=== PATIENT | male | born 1940 | race Caucasian/White ===

== ENCOUNTER 2017-08-07 01:31 | Inpatient (IN) | payer OTHER ==
--- NOTE | 2017-08-07 01:56 | HP ---
CIWA Score - CIWA Score Nausea/Vomitin Muscle Tremors: 2 Anxiety: 3 Agitation: 3 Paroxysmal Sweats: 1-Minimal Palms Moist Orientation: 1-Uncertain about Date Tacttile Disturbances: 1-Very Mild Itch/Numbness Auditory Disturbances: 0-None Visual Disturbances: 2-Mild Sensitivity Headache: 1-Very Mild CIWA-Ar Total Score: 16 Admission ROS BHS - HPI Chief Complaint: WITHDRAWAL SYMPTOMS Allergies/Adverse Reactions: Allergies Allergy/AdvReac Type Severity Reaction Status Date / Time No Known Allergies Allergy Verified 12/12/12 16:08 History of Present Illness: 77 Y.O. MAN WITH AN EXTENSIVE HISTORY OF ALCOHOL DEPENDENCE IS HERE SEEKING DETOX. HE WAS LAST HERE IN 2012 FOR DETOX. REPORTS BEING SOBER FOR 30 YEARS BUT STATES HE RELAPSED IN 2009. Exam Limitations: Intoxication - Ebola screening Have you traveled outside of the country in the last 21 days: No - Review of Systems Constitutional: Changes in sleep, Weakness EENT: reports: Blurred Vision Respiratory: reports: Cough, SOB with Exertion Cardiac: reports: No Symptoms Reported GI: reports: Abdominal Distended, Nausea : reports: No Symptoms Reported Musculoskeletal: reports: No Symptoms Reported Integumentary: reports: No Symptoms Reported Neuro: reports: Tremors Endocrine: reports: No Symptoms Reported Hematology: reports: Blood Clots (ON COUMADIN) Psychiatric: reports: Mood/Affect Appropiate, Agitated, Anxious, Depressed Other Systems: Reviewed and Negative Patient History - Patient Medical History Hx Anemia: No Hx Asthma: No Hx Chronic Obstructive Pulmonary Disease (COPD): No Hx Cancer: No Hx Cardiac Disorders: No Hx Congestive Heart Failure: No Hx Hypertension: No Hx Hypercholesterolemia: Yes Hx Pacemaker: No HX Cerebrovascular Accident: No Hx Seizures: No Hx Dementia: No Hx Diabetes: No Hx Gastrointestinal Disorders: No Hx Liver Disease: No Hx Genitourinary Disorders: No Hx Sexually Transmitted Disorders: No Hx Renal Disease (ESRD): No Hx Thyroid Disease: No Hx Human Immunodeficiency Virus (HIV): No Hx Hepatitis C: No Hx Depression: Yes (not suicidal, does not see psych, on remeron) Hx Suicide Attempt: No Hx Bipolar Disorder: No Hx Schizophrenia: No - Patient Surgical History Past Surgical History: Yes Hx Neurologic Surgery: No Hx Cataract Extraction: No Hx Cardiac Surgery: No Hx Lung Surgery: No Hx Breast Surgery: No Hx Breast Biopsy: No Hx Appendectomy: No Hx Cholecystectomy: No Hx Genitourinary Surgery: Yes (turp) Hx Orthopedic Surgery: Yes (left hip replacement 08/2015) Other Surgical History: IVC filter Anesthesia Reaction: No - PPD History Previous Implant?: Yes Documented Results: Negative w/proof Implanted On Prior [facility] Admission?: Yes Date: 12/14/12 Results: 0 PPD to be Administered?: Yes - Reproductive History Patient is a Female of Child Bearing Age (11 -55 yrs old): No - Smoking Cessation Smoking history: Former smoker Have you smoked in the past 12 months: No Aproximately how many cigarettes per day: 0 Cigars Per Day: 0 Hx Chewing Tobacco Use: No Initiated information on smoking cessation: No - Substance & Tx. History Hx Alcohol Use: Yes Hx Substance Use: Yes (ON SUBOXONE ) Substance Use Type: Alcohol, Opiates Hx Substance Use Treatment: Yes (DOES NOT RECALL LAST DETOX OR REHAB ADMISSION) - Substances Abused Alcohol Route: Oral Frequency: Daily Amount used: 6 PACK OF 24OZ OF BEER + 1 PINT OF LIQUOR Age of first use: 13 Date of Last Use: 08/07/17 Family Disease History - Family Disease History Family Disease History: Heart Disease: Father (), Other: Father, Mother (/[id number]) Admission Physical Exam BHS - Vital Signs Vital Signs: Last Vital Signs Temp Pulse Resp BP Pulse Ox 96.1 F L 99 H 16 138/82 08/07/17 02:38 08/07/17 02:38 08/07/17 02:38 08/07/17 02:38 - Physical General Appearance: Yes: Disheveled, Alcohol on Breath, Intoxicated, Tremorous, Irritable, Sweating, Anxious HEENTM: Yes: Hearing grossly Normal, Normocephalic, Normal Voice Respiratory: Yes: Chest Non-Tender, Lungs Clear, Normal Breath Sounds, No Respiratory Distress, No Accessory Muscle Use Neck: Yes: No masses,lesions,Nodules, Trachea in good position Breast: Yes: Breast Exam Deferred Cardiology: Yes: Regular Rhythm, Regular Rate Abdominal: Yes: Normal Bowel Sounds, Non Tender, Flat Genitourinary: Yes: Other (NO COMPLAINTS REPORTED) Back: Yes: Normal Inspection Musculoskeletal: Yes: full range of Motion, Gait Steady, Pelvis Stable Extremities: Yes: Tremors, Pedal Edema, Other (B/L LE EDEMA) Neurological: Yes: Alert, Motor Strength 5/5, Normal Mood/Affect, Normal Response, Depressed Affect Integumentary: Yes: Pitting Edema Lymphatic: Yes: Within Normal Limits - Diagnostic (1) Alcohol dependence with uncomplicated withdrawal Current Visit: Yes Status: Chronic (2) Edema of both legs Current Visit: Yes Status: Chronic Comment: unclear if due to PVD or other cause - consent for records, recommend zip up compresson stockings and keep legs elevated when at rest (3) Hyperlipidemia Current Visit: Yes Status: Chronic Qualifiers: Hyperlipidemia type: pure hypercholesterolemia Qualified Code(s): E78.00 - Pure hypercholesterolemia, unspecified; E78.0 - Pure hypercholesterolemia (4) h/o dvt on coumadin Current Visit: Yes Status: Chronic Comment: on coumadin - sees md for same ivc filter coumadin 2 mg alternates with 3 mg every other day (5) Opioid dependence on agonist therapy Current Visit: Yes Status: Chronic Cleared for Admission BHS - Detox or Rehab S Level of Care: Medically Managed Detox Regimen/Protocol: Librium BHS Breath Alcohol Content Breath Alcohol Content: 0.220 Vital Signs - Vital Signs Vital Signs Refused: No Temperature: 96.1 F Temperature Source: Oral Pulse Rate: 99 Respiratory Rate: 16 Blood Pressure: 138/82 BP Location: Left Arm Blood Pressure Position: Sitting - Height Height: 6 ft - Weight Weight: 235 lb Weight Measurement Method: Standing Scale Body Mass Index (BMI): 31.8 Urine Drug Screen - Control Is Test Valid: Yes - Results Drug Screen Negative: No Urine Drug Screen Results: BZO-Benzodiazepines
[2017-08-07] MEDS ORDERED: guaiFENesin/D-METHORPHAN HB 10 ML UNIT-DOSE CUPS PO PRN (02:17)
[2017-08-07] MEDS ORDERED: chlordiazePOXIDE HCL 25 MG CAPSULE PO ONE (02:17)
[2017-08-07] MEDS ORDERED: LOPERAMIDE HCL 2 MG CAPSULE PO PRN (02:17)
[2017-08-07] MEDS ORDERED: IBUPROFEN 400 MG TABLET (FP) PO PRN (02:17)
[2017-08-07] MEDS ORDERED: chlordiazePOXIDE HCL 25 MG CAPSULE PO PRN (02:17)
[2017-08-07] MEDS ORDERED: ACETAMINOPHEN 325 MG TABLET (FP) PO PRN (02:17)
[2017-08-07] MEDS ORDERED: diphenhydrAMINE HCL 50 MG CAPSULE PO PRN (02:17)
[2017-08-07] MEDS ORDERED: MAG HYDROX/AL HYDROX/SIMETH 30 ML UNIT-DOSE CUP PO PRN (02:17)
[2017-08-07] MEDS ORDERED: MAGNESIUM CITRATE 300 ML BOTTLE PO PRN (02:17)
[2017-08-07] MEDS ORDERED: MAGNESIUM HYDROX 2400MG/30ML ORAL SUSPENSION 30 ML CUP PO PRN (02:17)
[2017-08-07] MEDS ORDERED: MENTHOL/PHENOL 1 EACH UD MM PRN (02:17)
[2017-08-07] MEDS ORDERED: P-EPHED 60MG/TRIPROLIDI 2.5MG TABLET PO PRN (02:17)
[2017-08-07 02:38] VITALS: BMI 31.8
[2017-08-07] MEDS: chlordiazePOXIDE HCL 25 MG CAPSULE PO SCH ×4 (06:28→22:19)
--- NOTE | 2017-08-07 07:26 | PN ---
[facility] Progress Note Note: Abnormal ECG: Atrial flutter w/ variable AV block. Pt. denied palpitations, dypsnea and chest pain, fatigue, lightheadedness and shortness of breath. He reports he does not have a history of atrial flutter. Pt. to be sent to the ER for further evaluation. Report given to ZINA Asif. Last Vital Signs Temp Pulse Resp BP Pulse Ox 96.9 F L 88 18 109/61 08/07/17 06:40 08/07/17 06:40 08/07/17 06:40 08/07/17 06:40
[2017-08-07] MEDS ORDERED: FLU VACCINE QUAD 60 MCG/0.5 ML (MDV 17-18) IM ONE (12:00)
--- NOTE | 2017-08-07 13:04 | EKG ---
Test Reason : Blood Pressure : / mmHG Vent. Rate : 082 BPM Atrial Rate : 220 BPM P-R Int : 000 ms QRS Dur : 098 ms QT Int : 396 ms P-R-T Axes : 000 -19 -10 degrees QTc Int : 462 ms ATRIAL FLUTTER WITH VARIABLE A-V BLOCK ABNORMAL ECG Confirmed by RONEN CUELLO MD ([id number]) on 08/07/2017 1:04:30 PM Referred By: Confirmed By:RONEN CUELLO MD
--- NOTE | 2017-08-07 13:04 | EKG ---
Test Reason : Blood Pressure : / mmHG Vent. Rate : 080 BPM Atrial Rate : 227 BPM P-R Int : 000 ms QRS Dur : 092 ms QT Int : 370 ms P-R-T Axes : 000 -24 -09 degrees QTc Int : 426 ms ATRIAL FLUTTER WITH VARIABLE A-V BLOCK NONSPECIFIC ST ABNORMALITY ABNORMAL ECG WHEN COMPARED WITH ECG OF 07-AUG-2017 06:11, NO SIGNIFICANT CHANGE WAS FOUND Confirmed by RONEN CUELLO MD ([id number]) on 08/07/2017 1:03:52 PM Referred By: Confirmed By:RONEN CUELLO MD
--- NOTE | 2017-08-07 13:05 | EKG ---
Test Reason : Blood Pressure : / mmHG Vent. Rate : 084 BPM Atrial Rate : 089 BPM P-R Int : 000 ms QRS Dur : 098 ms QT Int : 384 ms P-R-T Axes : 000 -19 -02 degrees QTc Int : 453 ms ATRIAL FIBRILLATION ABNORMAL ECG NO PREVIOUS ECGS AVAILABLE Confirmed by RONEN CUELLO MD ([id number]) on 08/07/2017 1:04:47 PM Referred By: Confirmed By:RONEN CUELLO MD
[2017-08-07] MEDS: PRENATAL VITAMINS W/ FOLIC ACID TABLET (FP) PO SCH (16:33)
[2017-08-07] MEDS: BUPRENORPHINE/NALOXONE 8 MG/2 MG FILM PACKET SL SCH ×2 (16:35→22:19)
--- NOTE | 2017-08-07 17:07 | PN ---
[facility] Progress Note Note: PATIENT RETURNED FROM [facility] ER,MEDICALLY CLEAR TO RETURN TO [facility] FOR CONTINUE DETOX WILL CONTINUE DETOX,COUMADIN 5 MGS PO HS ,METOPROLOL TARTRATE 12.5 MG PO BID, CONTINUE SUBOXONE 8 MGS/2MGS SL BID,REPEAT INR IN AM,CLOSE MONITORING
[2017-08-07] MEDS ORDERED: WARFARIN NA 2 MG TABLET (UD) PO ONE (18:00)
[2017-08-07] MEDS: WARFARIN NA 5 MG TABLET (UD) PO SCH (18:01)
[2017-08-07] MEDS: THIAMINE HCL 100 MG TABLET (FP) PO SCH (22:19)
[2017-08-07] MEDS: METOPROLOL TARTRATE 25 MG TABLET (FP) PO SCH (22:19)
[2017-08-08] MEDS: chlordiazePOXIDE HCL 25 MG CAPSULE PO SCH ×2 (05:13→10:28)
[2017-08-08] MEDS: PRENATAL VITAMINS W/ FOLIC ACID TABLET (FP) PO SCH (10:27)
[2017-08-08] MEDS: BUPRENORPHINE/NALOXONE 8 MG/2 MG FILM PACKET SL SCH ×2 (10:28→22:08)
[2017-08-08] MEDS: METOPROLOL TARTRATE 25 MG TABLET (FP) PO SCH ×2 (10:28→22:09)
[2017-08-08] MEDS ORDERED: diazePAM 5 MG TABLET PO ONE (11:57)
[2017-08-08] MEDS ORDERED: FLU VACCINE QUAD 60 MCG/0.5 ML (MDV 17-18) IM ONE (13:00)
--- NOTE | 2017-08-08 13:03 | PN ---
[facility] CIWA - CIWA Score Nausea/Vomitin Muscle Tremors: 3 Anxiety: 3 Agitation: 3 Paroxysmal Sweats: 1-Minimal Palms Moist Orientation: 0-Oriented Tacttile Disturbances: 1-Very Mild Itch/Numbness Auditory Disturbances: 1-Very Mild Visual Disturbances: 0-None Headache: 2-Mild CIWA-Ar Total Score: 17 [facility] Progress Note (SOAP) Subjective: ALERT,IRRITABLE,ANXIOUS,INTERRUPTED SLEEP,TREMOR Objective: 08/08/17 13:00 Vital Signs Temperature 97 F L 08/08/17 11:44 Pulse Rate 109 H 08/08/17 11:44 Respiratory Rate 18 08/08/17 11:44 Blood Pressure 136/82 08/08/17 11:44 O2 Sat by Pulse Oximetry (%) EKG ATRIAL FIBRILLATION 82/MIN MEDICALLY CLEAR BY [facility] ER TO RETURN TO [facility] TO CONTINUE DETOX NO CHEST PAIN,NO SOB,NO DIZZINESS Assessment: 08/08/17 13:02 WITHDRAWAL SYMPTOM Plan: CONTINUE DETOX,CBC,CMP,INR IN AM,CONTINUE METOPROLOL TARTRATE 12.5 G PO BID, COUMADIN 5 MGS PO DAILY, REPEAT CBC,CMP,INR IN AG PATIENT REQUEST REGIMEN TO CHANGE TO VALIUM INSTEAD OF LIBRIUM
--- NOTE | 2017-08-08 13:10 | CONSULT ---
[facility] Psychiatric Consult - Data Date of interview: 08/08/17 Admission source: Self-referred Identifying data: Mr Bettencourt is a 77 years old male, father of 2 daughters, retired from [email or web address], receiving SS & 2 pensions, domiciled seeking detox treatment for alcohol Substance Abuse History: Reports history of alcohol use. He started drinking at age 13, consumes one pint of beer & 6x 24oz of beer daily. Last dramk on Medical History: Significant for hyperlipidemia, deep vein thrombosis with IVC filter place in right groin, TURP and history of orthosurgery for replacement both hips Psychiatric History: Reports history of receiving Xanax for anxiety prescribed by his primary care physician. Claims that he stopped taking it 1-2 years ago Physical/Sexual Abuse/Trauma History: Denies history of verbal, physical or sexual abuse as well as DV relationsip. 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 Additional Comment: No criminal history Mental Status Exam - Mental Status Exam Alert and Oriented to: Time, Place, Person Cognitive Function: Fair Patient Appearance: Well Groomed Mood: Anxious Affect: Appropriate Patient Behavior: Cooperative Speech Pattern: Clear Voice Loudness: Normal Thought Process: Intact, Goal Oriented Thought Disorder: Not Present Hallucinations: Denies Suicidal Ideation: Denies Homicidal Ideation: Denies Insight/Judgement: Poor Sleep: Poorly Appetite: Fair Muscle strength/Tone: Normal Gait/Station: Normal Psychiatric Findings - Problem List ([place] 1, 2,3) (1) Alcohol-induced anxiety disorder Current Visit: Yes Status: Acute (2) Alcohol dependence with uncomplicated withdrawal Current Visit: Yes Status: Chronic (3) Opioid dependence on agonist therapy Current Visit: Yes Status: Chronic (4) Edema of both legs Current Visit: Yes Status: Chronic Comment: unclear if due to PVD or other cause - consent for records, recommend zip up compresson stockings and keep legs elevated when at rest (5) Hyperlipidemia Current Visit: Yes Status: Chronic Qualifiers: Hyperlipidemia type: pure hypercholesterolemia Qualified Code(s): E78.00 - Pure hypercholesterolemia, unspecified; E78.00 - Pure hypercholesterolemia, unspecified; E78.00 - Pure hypercholesterolemia, unspecified; E78.0 - Pure hypercholesterolemia (6) h/o dvt on coumadin Current Visit: Yes Status: Chronic Comment: on coumadin - sees for same ivc filter coumadin 2 mg alternates with 3 mg every other day (7) Atrial flutter Current Visit: No Status: Acute (8) Decreased right shoulder range of motion Current Visit: No Status: Chronic Comment: heat, declines MRI or ortho referral - declines PT (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 2) Continue inpatient detoxification
[2017-08-08] MEDS: diazePAM 5 MG TABLET PO SCH ×2 (14:36→22:09)
[2017-08-08] MEDS: WARFARIN NA 5 MG TABLET (UD) PO SCH (17:42)
[2017-08-08] MEDS: diazePAM 5 MG TABLET PO PRN (17:45)
[2017-08-08] MEDS: THIAMINE HCL 100 MG TABLET (FP) PO SCH (22:08)
[2017-08-08] MEDS: ZOLPIDEM TARTRATE 5 MG TABLET PO PRN (22:09)
[2017-08-09] MEDS ORDERED: chlordiazePOXIDE 5 MG CAPSULE PO SCH (05:00)
[2017-08-09] MEDS: diazePAM 5 MG TABLET PO SCH ×3 (05:47→22:26)
[2017-08-09] MEDS: diazePAM 5 MG TABLET PO PRN ×2 (10:08→18:04)
[2017-08-09] MEDS: PRENATAL VITAMINS W/ FOLIC ACID TABLET (FP) PO SCH (10:09)
[2017-08-09] MEDS: METOPROLOL TARTRATE 25 MG TABLET (FP) PO SCH ×2 (10:09→22:27)
[2017-08-09] MEDS: BUPRENORPHINE/NALOXONE 8 MG/2 MG FILM PACKET SL SCH ×2 (10:09→22:26)
--- NOTE | 2017-08-09 11:01 | PN ---
S CIWA - CIWA Score Nausea/Vomitin-No Nausea/No Vomiting Muscle Tremors: 4-Moderate,w/Arms Extend Anxiety: 3 Agitation: 4-Moderately Restless Paroxysmal Sweats: 3 Orientation: 0-Oriented Tacttile Disturbances: 0-None Auditory Disturbances: 0-None Visual Disturbances: 0-None Headache: 0-None Present CIWA-Ar Total Score: 14 [facility] Progress Note (SOAP) Subjective: sweats shakes interrupted sleep agitation Objective: 08/09/17 11:01 Vital Signs Temperature 97.5 F L 08/09/17 09:31 Pulse Rate 125 H 08/09/17 09:31 Respiratory Rate 20 08/09/17 09:31 Blood Pressure 120/69 08/09/17 09:31 O2 Sat by Pulse Oximetry (%) labs pending AAOx3 ambulating no acute distress Assessment: 08/09/17 11:01 withdrawal sx Plan: continue detox increase fluids
[2017-08-09] MEDS: hydrOXYzine PAMOATE 50 MG CAPSULE (FP) PO PRN (12:18)
[2017-08-09] MEDS: WARFARIN NA 5 MG TABLET (UD) PO SCH (18:04)
[2017-08-09] MEDS: ZOLPIDEM TARTRATE 5 MG TABLET PO PRN (22:26)
[2017-08-09] MEDS: THIAMINE HCL 100 MG TABLET (FP) PO SCH (22:26)
[2017-08-10] MEDS ORDERED: chlordiazePOXIDE HCL 10 MG CAPSULE PO SCH (05:00)
[2017-08-10] MEDS: PRENATAL VITAMINS W/ FOLIC ACID TABLET (FP) PO SCH (10:10)
[2017-08-10] MEDS: METOPROLOL TARTRATE 25 MG TABLET (FP) PO SCH ×2 (10:10→22:11)
[2017-08-10] MEDS: hydrOXYzine PAMOATE 50 MG CAPSULE (FP) PO PRN (10:10)
[2017-08-10] MEDS: diazePAM 5 MG TABLET PO SCH ×2 (10:11→22:11)
[2017-08-10] MEDS: BUPRENORPHINE/NALOXONE 8 MG/2 MG FILM PACKET SL SCH ×2 (10:11→22:11)
--- NOTE | 2017-08-10 10:35 | PN ---
[facility] Progress Note (SOAP) Subjective: little sweats little shakes feeling better Objective: 08/10/17 10:34 Vital Signs Temperature 97.5 F L 08/10/17 06:00 Pulse Rate 82 08/10/17 06:00 Respiratory Rate 18 08/10/17 06:00 Blood Pressure 138/79 08/10/17 06:00 O2 Sat by Pulse Oximetry (%) AAOx3 ambulating no acute distress Assessment: 08/10/17 10:34 mild withdrawal sx Plan: continue detox d/c in am
[2017-08-10] MEDS: diazePAM 5 MG TABLET PO PRN ×2 (13:06→17:45)
[2017-08-10] MEDS: WARFARIN NA 5 MG TABLET (UD) PO SCH (17:45)
[2017-08-10] MEDS: THIAMINE HCL 100 MG TABLET (FP) PO SCH (22:11)
[2017-08-10] MEDS: ZOLPIDEM TARTRATE 5 MG TABLET PO PRN (22:11)
--- NOTE | 2017-08-11 08:28 | PN ---
S Progress Note (SOAP) Subjective: alert,no complaint Objective: 08/11/17 08:27 Vital Signs Temperature 96.4 F L 08/11/17 06:00 Pulse Rate 57 L 08/11/17 06:00 Respiratory Rate 18 08/11/17 06:00 Blood Pressure 133/72 08/11/17 06:00 O2 Sat by Pulse Oximetry (%) Assessment: 08/11/17 08:27 sable for discharge today Plan: discharge,follow up with after care program as arrangement
--- NOTE | 2017-08-11 08:33 | DS ---
[facility] Detox Discharge Summary Admission Date: 08/07/17 Discharge Date: 08/11/17 - History Present History: Alcohol Dependence Additional Comments: follow up with after care program as arrangement Pertinent Past History: hypertension history of dvt mmtp atrial fibrillation history - Physical Exam Results Vital Signs: Vital Signs Temperature 96.4 F L 08/11/17 06:00 Pulse Rate 57 L 08/11/17 06:00 Respiratory Rate 18 08/11/17 06:00 Blood Pressure 133/72 08/11/17 06:00 O2 Sat by Pulse Oximetry (%) Pertinent Admission Physical Exam Findings: withdrawal symptom - Treatment Hospital Course: Detox Protocol Followed, Detoxed Safely, Responded well, Discharged Condition Good Patient has Accepted a Rehab Referral to: declined - Medication Discharge Medications: Ambulatory Orders Warfarin Sodium [Coumadin] 5 mg PO HS 12/12/12 Atorvastatin Calcium [Lipitor] 10 mg PO DAILY #0 tablet 12/16/12 Warfarin Na [Coumadin] 3 mg PO ASDIR 08/06/17 Metoprolol Tartrate [Lopressor -] 12.5 mg PO BID 08/07/17 - Diagnosis (1) Alcohol dependence with uncomplicated withdrawal Current Visit: Yes Status: Chronic (2) Hyperlipidemia Current Visit: Yes Status: Chronic Qualifiers: Hyperlipidemia type: pure hypercholesterolemia Qualified Code(s): E78.00 - Pure hypercholesterolemia, unspecified; E78.00 - Pure hypercholesterolemia, unspecified; E78.00 - Pure hypercholesterolemia, unspecified; E78.0 - Pure hypercholesterolemia (3) h/o dvt on coumadin Current Visit: Yes Status: Chronic (4) History of atrial fibrillation Current Visit: Yes Status: Acute - AMA Did Patient Leave Against Medical Advice: No
[2017-08-11] MEDS: METOPROLOL TARTRATE 25 MG TABLET (FP) PO SCH (10:03)
[2017-08-11] MEDS: PRENATAL VITAMINS W/ FOLIC ACID TABLET (FP) PO SCH (10:03)
[2017-08-11] MEDS: BUPRENORPHINE/NALOXONE 8 MG/2 MG FILM PACKET SL SCH (10:03)
[2017-08-11] MEDS: diazePAM 5 MG TABLET PO SCH (10:05)
[2017-08-11 10:25] VITALS: BP 118/60; PULSE 118; TEMP 97.5
[2017-08-11] MEDS ORDERED: ATORVASTATIN CA 10 MG TABLET (FP) PO SCH (22:00)
[2017-08-12] MEDS ORDERED: diazePAM 5 MG TABLET PO SCH (10:00)
== END 2017-08-11 11:45 | disposition home or self-care (01) | DRG 897 ==
LOC: YASAS 01:31 → Y6N 01:33
PROVIDERS: ADMIT Internal Medicine; ATTEND Internal Medicine Addiction Medicine
PROC: HZ2ZZZZ Detoxification Services for Substance Abuse Treatment (ICD-10-PCS; principal; 2017-08-07)
DX: F10.230 Alcohol dependence with withdrawal, uncomplicated (principal); F11.20 Opioid dependence, uncomplicated; F13.20 Sedative, hypnotic or anxiolytic dependence, uncomplicated; I48.92 Unspecified atrial flutter; I44.2 Atrioventricular block, complete; I82.409 Acute embolism and thrombosis of unspecified deep veins of unspecified lower extremity; D68.59 Other primary thrombophilia; F10.280 Alcohol dependence with alcohol-induced anxiety disorder; F10.282 Alcohol dependence with alcohol-induced sleep disorder; F10.220 Alcohol dependence with intoxication, uncomplicated; F34.1 Dysthymic disorder; I48.91 Unspecified atrial fibrillation; R60.0 Localized edema; G89.29 Other chronic pain; Z79.01 Long term (current) use of anticoagulants; Z96.642 Presence of left artificial hip joint; Z87.891 Personal history of nicotine dependence; Z95.828 Presence of other vascular implants and grafts
CPT/HCPCS: 36415; 70450-TC; 80053; 80307; 85025; 85027; 85610; 85730; 86593; 90688; 93005; 93010; 96374; 99283-25; G0008

== ENCOUNTER 2017-08-07 08:57 | Emergency (ER) | payer OTHER ==
[2017-08-07 09:29] VITALS: BMI 31.1
--- NOTE | 2017-08-07 09:52 | PDOC ---
History of Present Illness - General History Source: Patient Exam Limitations: No Limitations - History of Present Illness Initial Comments: 08/07/17 09:58 The patient is a 77 year old male with a significant past medical history of depression, DVT (on coumadin), HLD, alcohol abuse, and polysubstance abuse who presents to the ED s/p alcohol intoxication. The patient reports he was found on the street this morning after consuming large amounts of alcohol. Patient states his last drink was at 1 am this morning and does not remember how he ended up on the side of the street. The patient states he was 30 years sober but started drinking a month ago due to his of 53 years passing away. Patient comes into the ED seeking detox. Patient states he has a history of alcohol withdrawal (gets shakes). Denies abdominal pain or nausea. Denies headache. Denies chest pain or shortness of breath. Denies any other symptoms. <Néstor Nixon - Last Filed: 08/07/17 11:08> <Margie Currie - Last Filed: 08/07/17 14:09> - General Chief Complaint: Alcohol intoxication Stated Complaint: ABNORMAL EKG Past History <Néstor Nixon - Last Filed: 08/07/17 11:08> - Past Medical History Anemia: No Asthma: No Cancer: No Cardiac Disorders: Yes (atrial fibrillation) CVA: No COPD: No CHF: No DVT: Yes Dementia: No Diabetes: No GI Disorders: No Disorders: No HTN: No Hypercholesterolemia: Yes Kidney Stones: No Liver Disease: No Seizures: No Thyroid Disease: No - Surgical History Appendectomy: No Cardiac Surgery: No Cholecystectomy: No Lung Surgery: No Neurologic Surgery: No Orthopedic Surgery: Yes (left hip replacement 08/2015) - Reproductive History Testicular Surgery: No - Suicide/Smoking/Psychosocial Hx Smoking History: Never smoked Have you smoked in the past 12 months: No Number of Cigarettes Smoked Daily: 0 Cigars Per Day: 0 Information on smoking cessation initiated: No 'Breaking Loose' booklet given: 08/06/17 Hx Alcohol Use: Yes Drug/Substance Use Hx: No Substance Use Type: None Hx Substance Use Treatment: Yes <Margie Currie - Last Filed: 08/07/17 14:09> - Past Medical History Allergies/Adverse Reactions: Allergies Allergy/AdvReac Type Severity Reaction Status Date / Time No Known Allergies Allergy Verified 12/12/12 16:08 Home Medications: Ambulatory Orders Warfarin Sodium [Coumadin] 5 mg PO DAILY 12/12/12 Atorvastatin Calcium [Lipitor] 10 mg PO DAILY #0 tablet 12/16/12 Warfarin Na [Coumadin] 3 mg PO ASDIR 08/06/17 Metoprolol Tartrate [Lopressor -] 12.5 mg PO BID 08/07/17 Review of Systems - Review of Systems Able to Perform ROS?: Yes Comments:: 08/07/17 09:58 GENERAL/CONSTITUTIONAL: + alcohol intoxication. No fever or chills. No weakness. HEAD, EYES, EARS, NOSE AND THROAT: No change in vision. No ear pain or discharge. No sore throat. CARDIOVASCULAR: No chest pain or shortness of breath. RESPIRATORY: No cough, wheezing, or hemoptysis. GASTROINTESTINAL: No nausea, vomiting, diarrhea or constipation. GENITOURINARY: No dysuria, frequency, or change in urination. MUSCULOSKELETAL: No joint or muscle swelling or pain. No neck or back pain. SKIN: No rash NEUROLOGIC: No headache, vertigo, loss of consciousness, or change in strength/ sensation. ENDOCRINE: No increased thirst. No abnormal weight change. HEMATOLOGIC/LYMPHATIC: No anemia, easy bleeding, or history of blood clots. ALLERGIC/IMMUNOLOGIC: No hives or skin allergy. All Other Systems: Reviewed and Negative <Néstor Nixon - Last Filed: 08/07/17 11:08> *Physical Exam - Vital Signs Last Vital Signs Temp Pulse Resp BP Pulse Ox 98 F 114 H 18 140/96 97 08/07/17 09:00 08/07/17 09:00 08/07/17 09:00 08/07/17 09:00 08/07/17 09:00 - Physical Exam Comments: 08/07/17 09:58 GENERAL: Awake, alert, and fully oriented, in no acute distress HEAD: No signs of trauma EYES: PERRLA, EOMI, sclera anicteric, conjunctiva clear ENT: Auricles normal inspection, hearing grossly normal, nares patent, oropharynx clear without exudates. Moist mucosa NECK: Normal ROM, supple, no lymphadenopathy, JVD, or masses LUNGS: Breath sounds equal, clear to auscultation bilaterally. No wheezes, and no crackles HEART: Regular rate and rhythm, normal S1 and S2, no murmurs, rubs or gallops ABDOMEN: Soft, nontender, normoactive bowel sounds. No guarding, no rebound. No masses EXTREMITIES:+ atraumatic. Bilateral nonpitting edema. Normal range of motion, no edema. No clubbing or cyanosis. No cords, erythema, or tenderness NEUROLOGICAL: Normal speech SKIN: Warm, Dry, normal turgor, no rashes or lesions noted. <Néstor Nixon - Last Filed: 08/07/17 11:08> - Vital Signs Last Vital Signs Temp Pulse Resp BP Pulse Ox 98 F 114 H 18 140/96 97 08/07/17 09:00 08/07/17 09:00 08/07/17 09:00 08/07/17 09:00 08/07/17 09:00 <Margie Currie - Last Filed: 08/07/17 14:09> ED Treatment Course - LABORATORY CBC & Chemistry Diagram: 08/07/17 10:23 08/07/17 10:23 - RADIOLOGY Radiograph Interpretation: 08/07/17 11:08 CT/HEAD CT WITHOUT CONTRAST Impression: No CT evidence of acute intracranial pathology. Moderate periventricular and subcortical microvascular ischemic gliosis is seen. Note is made of deformity of the right nasal bone probably on the basis of a prior fracture, less likely being acute in nature. Correlate clinically. Reported by: Kaiden Gibson <Néstor Nixon - Last Filed: 08/07/17 11:08> - LABORATORY CBC & Chemistry Diagram: 08/07/17 10:23 08/07/17 10:23 - RADIOLOGY Radiology Studies Ordered: Category Date Time Status HEAD CT WITHOUT CONTRAST [CT] Stat CT Scan 08/07/17 09:49 Ordered <Margie Currie - Last Filed: 08/07/17 14:09> Medical Decision Making - Medical Decision Making 08/07/17 09:50 77 yo male with h/o polysubstance abuse etoh abuse, hyperlipidemia and prior dvt on coumadin here after being found on sidewalk. unsure if he hit head. states started drinking again one month ago after his of 50 yrs . was sober for many years prior. no f/c no c/o pain. states he would like detox. 08/07/17 09:51 last drink was 1:30 am, does have h/o etoh withdrawal, denies hallucinations or prior seizures. on exam awake head atraumatic. lungs clear heart rrr no mrg.abd soft nt nd. ext wwp . mild bilat lower ext edema. 08/07/17 13:59 pt ekg with aflutter, rate controlled. pt states has h/o atrial flutter afib. called pharmacy at [address] [place] [address]. confirmed pt has been on both metoprolol 25 mg bid for afib in the past , and recently prescribed metoprolol 12.5 mg bid . was previously on coumadin 2mg. and 3 mg alternating days, and recently prescribed 5 mg. will send back to [facility]. pt should continue metoprolol 12.5 mg 08/07/17 14:05 d/w danny at [facility], pt will go to [facility] for detox. <Margie Currie - Last Filed: 08/07/17 14:09> *DC/Admit/Observation/Transfer - Attestations Scribe Attestion: 08/07/17 09:58 Documentation prepared by Néstor Nixon, acting as medical apparatus model maker for Margie Currie MD <Néstor Nixon - Last Filed: 08/07/17 11:08> <Margie Currie - Last Filed: 08/07/17 14:09> Diagnosis at time of Disposition: Alcohol intoxication, Atrial flutter - Discharge Dispostion Condition at time of disposition: Fair - Patient Instructions Printed Discharge Instructions: DI for Alcohol Abuse, Atrial Flutter Additional Instructions: you are supposed to be taking metoprolol 12.5 mg twice a day for your atrial flutter or irregular heart beats. you should also be taking coumadin 5mg nightly. return for any problems or concerns.
[2017-08-07 10:33] LABS: BASOPHIL 0.5 % (0-2.0); EOSINOPHIL 1.6 % (0-4.5); MCH 32.3 pg (25.7-33.7); MCHC 32.8 g/dl (32.0-35.9); MEAN CELL VOLUME 98.6 fl (80-96); MEAN PLT VOLUME 7.8 fl (7.5-11.1); NEUTROPHILS 71.8 % (42.8-82.8); PLATELET COUNT 186 K/MM3 (134-434); RDW 15.3 % (11.9-15.9); WHITE BLOOD COUNT 7.1 K/mm3 (4.0-10.0)
[2017-08-07 10:45] LABS: INR 1.7 (0.82-1.09); PROTHROMBIN TIME (PATIENT) 18.9 SEC (9.98-11.88)
[2017-08-07 10:58] LABS: ALBUMIN 3.7 g/dl (3.4-5.0); ANION GAP 10 (8-16); BILIRUBIN,TOTAL 0.7 mg/dL (0.2-1.0); CALCIUM 8.9 mg/dL (8.5-10.1); CO2 27 mmol/L (21-32); CREATININE 0.8 mg/dL (0.7-1.3); GLUCOSE,RANDOM 90 mg/dL (74-106); SGPT/ALT 45 U/L (12-78); TOT PROT 6.5 g/dl (6.4-8.2)
[2017-08-07 10:59] LABS: ALK PHOS 94 U/L (45-117)
[2017-08-07 11:03] LABS: SGOT/AST 64 U/L (15-37)
[2017-08-07] MEDS ORDERED: SODIUM CHLORIDE 0.9% 1000 ML INFUS.BAG IV ONE (11:32)
[2017-08-07] MEDS ORDERED: LORazepam 2 MG/ML SDV VIAL ONE (13:43)
[2017-08-07] MEDS ORDERED: METOPROLOL TARTRATE 25 MG TABLET (FP) PO ONE (14:07)
[2017-08-07] MEDS ORDERED: METOPROLOL TARTRATE 25 MG TABLET (FP) ONE (14:46)
[2017-08-07 15:03] VITALS: BP 147/96; PULSE 94; TEMP 97.9
== END 2017-08-07 15:04 | disposition other institution (70) ==
LOC: JER 08:57
PROC: 3E033NZ Introduction of Analgesics, Hypnotics, Sedatives into Peripheral Vein, Percutaneous Approach (ICD-10-PCS; principal; 2017-08-07)
DX: F10.120 Alcohol abuse with intoxication, uncomplicated (principal); Y90.6 Blood alcohol level of 120-199 mg/100 ml; I49.02 Ventricular flutter; Z86.718 Personal history of other venous thrombosis and embolism; Z79.01 Long term (current) use of anticoagulants; E78.00 Pure hypercholesterolemia, unspecified; F32.9 Major depressive disorder, single episode, unspecified; Z96.641 Presence of right artificial hip joint
CPT/HCPCS: 36415; 70450-TC; 80053; 80307; 85025; 85610; 85730; 96374; 99283-25

== ENCOUNTER 2018-03-28 09:24 | Inpatient (IN) | payer OTHER ==
[2018-03-28 10:06] VITALS: BMI 31.1
--- NOTE | 2018-03-28 12:13 | HP ---
CIWA Score - CIWA Score Nausea/Vomitin Muscle Tremors: 3 Anxiety: 3 Agitation: 3 Paroxysmal Sweats: 2 Orientation: 0-Oriented Tacttile Disturbances: 1-Very Mild Itch/Numbness Auditory Disturbances: 1-Very Mild Visual Disturbances: 0-None Headache: 2-Mild CIWA-Ar Total Score: 18 Admission ROS BHS - HPI Chief Complaint: i need help to stop drinking alcohol Allergies/Adverse Reactions: Allergies Allergy/AdvReac Type Severity Reaction Status Date / Time No Known Allergies Allergy Verified 03/28/18 11:50 History of Present Illness: this 77 years old male with alcohol dependence seeking detox,withdrawal symptom, last detox 08/07/17 to 08/11/17 hypercholesteolemia dvt both legs 20 years ago anxiety longest sobriety 30 years suboxone maintenance 8 mgs/2 mgs sl bid Exam Limitations: No Limitations - Ebola screening Have you traveled outside of the country in the last 21 days: No Have you had contact with anyone from an Ebola affected area: No Have you been sick,other than usual withdrawal symptoms: No Do you have a fever: No - Review of Systems Constitutional: Loss of Appetite, Malaise, Night Sweats, Changes in sleep, Weakness EENT: reports: Nose Congestion Respiratory: reports: No Symptoms reported Cardiac: reports: Palpitations GI: reports: Nausea, Vomiting, Abdominal cramping : reports: No Symptoms Reported Musculoskeletal: reports: Back Pain, Joint Pain, Muscle Pain, Joint Stiffness Integumentary: reports: Dryness Neuro: reports: Headache, Tremors Endocrine: reports: No Symptoms Reported Hematology: reports: No Symptoms Reported Psychiatric: reports: No Sypmtoms Reported, Judgement Intact, Mood/Affect Appropiate, Orientated x3 Patient History - Patient Medical History Hx Anemia: No Hx Asthma: No Hx Chronic Obstructive Pulmonary Disease (COPD): No Hx Cancer: No Hx Cardiac Disorders: Yes (atrial fibrillation) Hx Congestive Heart Failure: No Hx Hypertension: No Hx Hypercholesterolemia: Yes Hx Pacemaker: No HX Cerebrovascular Accident: No Hx Seizures: No Hx Dementia: No Hx Diabetes: No Hx Gastrointestinal Disorders: No Hx Liver Disease: No Hx Genitourinary Disorders: No Hx Sexually Transmitted Disorders: No Hx Renal Disease (ESRD): No Hx Thyroid Disease: No Hx Human Immunodeficiency Virus (HIV): No (last 2015 negative) Hx Hepatitis C: No Hx Depression: Yes (not suicidal, does not see psych, on remeron) Hx Suicide Attempt: No Hx Bipolar Disorder: No Hx Schizophrenia: No Other Medical History: no suicidal,no homicidal,left hip replacement in 2014, ivc filter - Patient Surgical History Past Surgical History: Yes Hx Neurologic Surgery: No Hx Cataract Extraction: No Hx Cardiac Surgery: No Hx Lung Surgery: No Hx Breast Surgery: No Hx Breast Biopsy: No Hx Appendectomy: No Hx Cholecystectomy: No Hx Genitourinary Surgery: Yes (turp) Hx Orthopedic Surgery: Yes (left hip replacement 08/2015) Other Surgical History: IVC filter 1997 Anesthesia Reaction: No - PPD History Previous Implant?: Yes Documented Results: Negative w/proof Implanted On Prior [facility] Admission?: Yes Date: 08/09/17 Results: 0 PPD to be Administered?: No - Smoking Cessation Smoking history: Never smoked Have you smoked in the past 12 months: No Aproximately how many cigarettes per day: 0 Cigars Per Day: 0 Hx Chewing Tobacco Use: No - Substance & Tx. History Hx Alcohol Use: Yes Hx Substance Use: No Substance Use Type: Alcohol Hx Substance Use Treatment: Yes ([facility] 08/07/17 to 08/11/17) - Substances Abused Alcohol Route: Oral Frequency: Daily Amount used: 30 glasses of beer daily (budlight) Age of first use: 13 Date of Last Use: 03/28/18 Family Disease History - Family Disease History Family Disease History: Heart Disease: Father (), Other: Father, Mother (/106) Admission Physical Exam BHS - Vital Signs Vital Signs: Vital Signs - 24 hr 03/28/18 10:05 Temperature 97.9 F Pulse Rate 116 H Respiratory 18 Rate Blood Pressure 138/93 - Physical General Appearance: Yes: Moderate Distress, Tremorous, Irritable, Sweating, Anxious HEENTM: Yes: Normal ENT Inspection, LINDEN, Pharynx Normal Respiratory: Yes: Lungs Clear, Normal Breath Sounds, No Respiratory Distress Neck: Yes: Within Normal Limits, Supple, Trachea in good position Breast: Yes: Within Normal Limits Cardiology: Yes: Tachycardia Abdominal: Yes: Within Normal Limits, Normal Bowel Sounds, Non Tender, Flat, Soft Genitourinary: Yes: Within Normal Limits Back: Yes: Muscle Spasm Musculoskeletal: Yes: Back pain, Joint Stiffness, Muscle Pain Extremities: Yes: Tremors Neurological: Yes: jet dyeing machine tender II-XII NML intact, Fully Oriented, Alert, Motor Strength 5/5 Integumentary: Yes: Dry Lymphatic: Yes: Within Normal Limits - Diagnostic (1) Alcohol dependence with uncomplicated withdrawal Current Visit: No Status: Chronic (2) History of atrial fibrillation Current Visit: No Status: Acute (3) Hyperlipidemia Current Visit: No Status: Chronic Qualifiers: Hyperlipidemia type: pure hypercholesterolemia Qualified Code(s): E78.00 - Pure hypercholesterolemia, unspecified (4) Alcohol dependence with intoxication Current Visit: Yes Status: Acute (5) DVT of lower extremity, bilateral Current Visit: Yes Status: Acute (6) S/P IVC filter Current Visit: Yes Status: Acute (7) Anxiety and depression Current Visit: Yes Status: Acute (8) Encounter for monitoring Suboxone maintenance therapy Current Visit: Yes Status: Acute (9) H/O bilateral hip replacements Current Visit: Yes Status: Acute Cleared for Admission [facility] - Detox or Rehab [facility] Level of Care: Medically Managed Detox Regimen/Protocol: Librium S Breath Alcohol Content Breath Alcohol Content: 0.182 Urine Drug Screen - Results Drug Screen Negative: Yes
[2018-03-28] MEDS ORDERED: MAG HYDROX/AL HYDROX/SIMETH 30 ML UNIT-DOSE CUP PO PRN (12:28)
[2018-03-28] MEDS ORDERED: MAGNESIUM CITRATE 300 ML BOTTLE PO PRN (12:28)
[2018-03-28] MEDS ORDERED: guaiFENesin/D-METHORPHAN HB 10 ML UNIT-DOSE CUPS PO PRN (12:28)
[2018-03-28] MEDS ORDERED: MENTHOL/PHENOL 1 EACH UD MM PRN (12:28)
[2018-03-28] MEDS ORDERED: chlordiazePOXIDE HCL 25 MG CAPSULE PO PRN (12:28)
[2018-03-28] MEDS ORDERED: MAGNESIUM HYDROX 2400MG/30ML ORAL SUSPENSION 30 ML CUP PO PRN (12:28)
[2018-03-28] MEDS ORDERED: ACETAMINOPHEN 325 MG TABLET (FP) PO PRN (12:28)
[2018-03-28] MEDS ORDERED: IBUPROFEN 400 MG TABLET (FP) PO PRN (12:28)
[2018-03-28] MEDS ORDERED: hydrOXYzine PAMOATE 25 MG CAPSULE (FP) PO PRN (12:28)
[2018-03-28] MEDS ORDERED: P-EPHED 60MG/TRIPROLIDI 2.5MG TABLET PO PRN (12:28)
[2018-03-28] MEDS ORDERED: LOPERAMIDE HCL 2 MG CAPSULE PO PRN (12:28)
[2018-03-28] MEDS ORDERED: chlordiazePOXIDE HCL 25 MG CAPSULE PO ONE (12:45)
[2018-03-28] MEDS ORDERED: ASPIRIN 81 MG CHEWABLE TABLETS PO ONE (14:43)
[2018-03-28 14:51] LABS: INR 1.04 (0.82-1.09); PROTHROMBIN TIME (PATIENT) 11.7 SEC (9.7-13.0)
--- NOTE | 2018-03-28 14:51 | PN ---
BHS Progress Note Note: Pt newly admitted to unit, admission and repeat EKG shows A-fib - no EKG on record for comparison. Pt c/o of chest palpitations, HR -110- 116bpm Hx of DVT with filter. ASA 162mg ordered To be sent to [facility], report given to MD Tejada. ABDI Newell aware.
[2018-03-28] MEDS ORDERED: RIVAROXABAN 20 MG TABLET PO ONE (17:30)
--- NOTE | 2018-03-28 18:03 | EKG ---
Test Reason : Blood Pressure : / mmHG Vent. Rate : 084 BPM Atrial Rate : 113 BPM P-R Int : 000 ms QRS Dur : 090 ms QT Int : 370 ms P-R-T Axes : 000 -22 004 degrees QTc Int : 437 ms ATRIAL FIBRILLATION MINIMAL VOLTAGE CRITERIA FOR LVH, MAY BE NORMAL VARIANT NONSPECIFIC ST ABNORMALITY ABNORMAL ECG WHEN COMPARED WITH ECG OF 07-AUG-2017 09:14, NO SIGNIFICANT CHANGE WAS FOUND Confirmed by YAZMIN REDDING MD ([id number]) on 03/28/2018 6:03:33 PM Referred By: Confirmed By:YAZMIN REDDING MD
[2018-03-28] MEDS: chlordiazePOXIDE HCL 25 MG CAPSULE PO SCH ×2 (20:15→23:07)
[2018-03-28 21:01] LABS: URINE APPEARANCE CLEAR; URINE BILIRUBIN NEGATIVE (<2.0 mg/dL); URINE COLOR STRAW; URINE GLUCOSE (UA) NEGATIVE (NEGATIVE); URINE KETONE NEGATIVE (NEGATIVE); URINE LEUK ESTERASE NEGATIVE (NEGATIVE); URINE NITRITE NEGATIVE (NEGATIVE); URINE PROTEIN NEGATIVE (NEGATIVE); URINE UROBILINOGEN NEGATIVE mg/dL (0.2-1.0)
[2018-03-28 21:30] LABS: URINE BACTERIA RARE /hpf (NONE SEEN)
[2018-03-28] MEDS ORDERED: MELATONIN 5 MG TABLETS PO PRN (22:00)
[2018-03-28] MEDS: THIAMINE HCL 100 MG TABLET (FP) PO SCH (23:07)
[2018-03-28] MEDS: ATORVASTATIN CA 20 MG TABLET (FP) PO SCH (23:07)
[2018-03-28] MEDS: BUPRENORPHINE/NALOXONE 8 MG/2 MG FILM PACKET SL SCH (23:07)
[2018-03-29] MEDS: chlordiazePOXIDE HCL 25 MG CAPSULE PO SCH ×4 (05:31→22:09)
[2018-03-29 10:15] LABS: HEMATOCRIT 43.5 % (35.4-49); HEMOGLOBIN 14.6 GM/dL (11.7-16.9); MCH 33.1 pg (25.7-33.7); MCHC 33.4 g/dl (32.0-35.9); MEAN CELL VOLUME 99.2 fl (80-96); MEAN PLT VOLUME 8.2 fl (7.5-11.1); PLATELET COUNT 212 K/MM3 (134-434); RBC 4.39 M/mm3 (4.00-5.60); RDW 14.1 % (11.9-15.9); WHITE BLOOD COUNT 6.1 K/mm3 (4.0-10.0)
[2018-03-29 10:19] LABS: CHLORIDE 108 mmol/L (98-107); POTASSIUM 4.6 mmol/L (3.5-5.1); SODIUM 144 mmol/L (136-145)
[2018-03-29] MEDS: PRENATAL VITAMINS W/ FOLIC ACID TABLET (FP) PO SCH (10:50)
[2018-03-29] MEDS: RIVAROXABAN 20 MG TABLET PO SCH ×2 (10:50→17:13)
[2018-03-29] MEDS: BUPRENORPHINE/NALOXONE 8 MG/2 MG FILM PACKET SL SCH ×2 (10:50→22:11)
[2018-03-29] MEDS: METOPROLOL TARTRATE 25 MG TABLET (FP) PO SCH (10:50)
[2018-03-29 11:26] LABS: ALBUMIN 4.4 g/dl (3.4-5.0); ALK PHOS 69 U/L (45-117); ANION GAP 10 (8-16); BILIRUBIN,TOTAL 1.1 mg/dL (0.2-1.0); BLOOD UREA NITROGEN 9 mg/dL (7-18); CALCIUM 9.1 mg/dL (8.5-10.1); CO2 26 mmol/L (21-32); GLUCOSE,RANDOM 99 mg/dL (74-106); SGOT/AST 36 U/L (15-37); SGPT/ALT 31 U/L (12-78); TOT PROT 7.5 g/dl (6.4-8.2)
--- NOTE | 2018-03-29 12:07 | PN ---
[facility] CIWA - CIWA Score Nausea/Vomitin-No Nausea/No Vomiting Muscle Tremors: 3 Anxiety: 4-Mod. Anxious/Guarded Agitation: 2 Paroxysmal Sweats: No Perspiration Orientation: 0-Oriented Tacttile Disturbances: 2-Mild Itch/Numbness/Burn Auditory Disturbances: 1-Very Mild Visual Disturbances: 3-Moderate Sensitivity Headache: 0-None Present CIWA-Ar Total Score: 15 BHS Progress Note (SOAP) Subjective: Tremors, Interrupted Sleep, Fatigue, Anxious. Objective: PATIENT A & O X 3. NO ACUTE DISTRESS. 03/29/18 12:05 Vital Signs Temperature 96.6 F L 03/29/18 10:15 Pulse Rate 114 H 03/29/18 11:00 Respiratory Rate 18 03/29/18 11:00 Blood Pressure 126/83 03/29/18 10:15 O2 Sat by Pulse Oximetry (%) Laboratory Tests 03/28/18 03/28/18 03/29/18 12:30 20:00 06:00 WBC 6.1 RBC 4.39 Hgb 14.6 Hct 43.5 MCV 99.2 H MCH 33.1 MCHC 33.4 RDW 14.1 Plt Count 212 MPV 8.2 PT with INR 11.70 INR 1.04 D Sodium Potassium Chloride Carbon Dioxide Anion Gap BUN Creatinine Creat Clearance w eGFR Random Glucose Calcium Total Bilirubin AST ALT Alkaline Phosphatase Total Protein Albumin Urine Color Straw Urine Appearance Clear Urine pH 5.0 D Ur Specific [place] 1.004 Urine Protein Negative Urine Glucose (UA) Negative Urine Ketones Negative Urine Blood 1+ H Urine Nitrite Negative Urine Bilirubin Negative Urine Urobilinogen Negative Ur Leukocyte Esterase Negative Urine WBC (Auto) None Urine RBC (Auto) <1 Urine Bacteria Rare RPR Titer 03/29/18 03/29/18 06:00 06:00 WBC RBC Hgb Hct MCV MCH MCHC RDW Plt Count MPV PT with INR INR Sodium 144 Potassium 4.6 Chloride 108 H Carbon Dioxide 26 Anion Gap 10 BUN 9 Creatinine 1.0 Creat Clearance w eGFR > 60 Random Glucose 99 Calcium 9.1 Total Bilirubin 1.1 H D AST 36 ALT 31 Alkaline Phosphatase 69 Total Protein 7.5 Albumin 4.4 Urine Color Urine Appearance Urine pH Ur Specific [place] Urine Protein Urine Glucose (UA) Urine Ketones Urine Blood Urine Nitrite Urine Bilirubin Urine Urobilinogen Ur Leukocyte Esterase Urine WBC (Auto) Urine RBC (Auto) Urine Bacteria RPR Titer Nonreactive LABS NOTED. Assessment: 03/29/18 12:06 WITHDRAWAL SYMPTOMS. Plan: CONTINUE DETOX.
[2018-03-29] MEDS: ATORVASTATIN CA 20 MG TABLET (FP) PO SCH (22:09)
[2018-03-29] MEDS: THIAMINE HCL 100 MG TABLET (FP) PO SCH (22:09)
[2018-03-30] MEDS: chlordiazePOXIDE HCL 25 MG CAPSULE PO SCH (06:40)
[2018-03-30] MEDS: METOPROLOL TARTRATE 25 MG TABLET (FP) PO SCH (10:25)
[2018-03-30] MEDS: chlordiazePOXIDE 5 MG CAPSULE PO SCH ×2 (10:25→17:40)
[2018-03-30] MEDS: BUPRENORPHINE/NALOXONE 8 MG/2 MG FILM PACKET SL SCH ×2 (10:25→22:03)
[2018-03-30] MEDS: PRENATAL VITAMINS W/ FOLIC ACID TABLET (FP) PO SCH (10:25)
--- NOTE | 2018-03-30 12:24 | PN ---
S CIWA - CIWA Score Nausea/Vomitin-No Nausea/No Vomiting Muscle Tremors: 4-Moderate,w/Arms Extend Anxiety: 3 Agitation: 1-Slight > Activity Paroxysmal Sweats: No Perspiration Orientation: 0-Oriented Tacttile Disturbances: 2-Mild Itch/Numbness/Burn Auditory Disturbances: 0-None Visual Disturbances: 2-Mild Sensitivity Headache: 0-None Present CIWA-Ar Total Score: 12 BHS Progress Note (SOAP) Subjective: Tremors, Anxious. Objective: PATIENT A & O X 3, OBSERVED AMBULATING ON UNIT. NO ACUTE DISTRESS. 03/30/18 12:21 Vital Signs Temperature 97.6 F 03/30/18 09:16 Pulse Rate 125 H 03/30/18 09:16 Respiratory Rate 16 03/30/18 09:16 Blood Pressure 111/84 03/30/18 09:16 O2 Sat by Pulse Oximetry (%) Laboratory Tests 03/28/18 03/28/18 03/29/18 12:30 20:00 06:00 WBC 6.1 RBC 4.39 Hgb 14.6 Hct 43.5 MCV 99.2 H MCH 33.1 MCHC 33.4 RDW 14.1 Plt Count 212 MPV 8.2 PT with INR 11.70 INR 1.04 D Sodium Potassium Chloride Carbon Dioxide Anion Gap BUN Creatinine Creat Clearance w eGFR POC Glucometer Random Glucose Calcium Total Bilirubin AST ALT Alkaline Phosphatase Total Protein Albumin Urine Color Straw Urine Appearance Clear Urine pH 5.0 D Ur Specific [place] 1.004 Urine Protein Negative Urine Glucose (UA) Negative Urine Ketones Negative Urine Blood 1+ H Urine Nitrite Negative Urine Bilirubin Negative Urine Urobilinogen Negative Ur Leukocyte Esterase Negative Urine WBC (Auto) None Urine RBC (Auto) <1 Urine Bacteria Rare RPR Titer 03/29/18 03/29/18 03/29/18 06:00 06:00 16:19 WBC RBC Hgb Hct MCV MCH MCHC RDW Plt Count MPV PT with INR INR Sodium 144 Potassium 4.6 Chloride 108 H Carbon Dioxide 26 Anion Gap 10 BUN 9 Creatinine 1.0 Creat Clearance w eGFR > 60 POC Glucometer 98 Random Glucose 99 Calcium 9.1 Total Bilirubin 1.1 H D AST 36 ALT 31 Alkaline Phosphatase 69 Total Protein 7.5 Albumin 4.4 Urine Color Urine Appearance Urine pH Ur Specific [place] Urine Protein Urine Glucose (UA) Urine Ketones Urine Blood Urine Nitrite Urine Bilirubin Urine Urobilinogen Ur Leukocyte Esterase Urine WBC (Auto) Urine RBC (Auto) Urine Bacteria RPR Titer Nonreactive LABS NOTED. Assessment: 03/30/18 12:21 WITHDRAWAL SYMPTOMS. Plan: CONTINUE DETOX. PATIENT REPORTS THAT HE IS TOLERATING CURRENT WITHDRAWAL SYMPTOMS RELATIVELY WELL. AT PATIENT'S REQUEST, CURRENT DETOX MEDICATION REGIMEN MODIFIED SO THAT PATIENT MAY BE DISCHARGED TOMORROW, 03/31/2018.
--- NOTE | 2018-03-30 13:36 | CONSULT ---
[facility] Psychiatric Consult - Data Date of interview: 03/30/18 Admission source: [facility] Identifying data: Readmission to [facility] for this 77 y/o male seeking detox treatment on for alcohol dependence.Patient is ( seven months ago),a father of two,domiciled (lives with daughter + son-in law),supported on Social Security + pension benefits (retired from the [employer]). Substance Abuse History: Smoking history: Never smoked. Have you smoked in the past 12 months: No. Aproximately how many cigarettes per day: 0. Cigars Per Day: 0. Hx Chewing Tobacco Use: No. - Substance & Tx. History. Hx Alcohol Use : Yes. Hx Substance Use: No. Substance Use Type: Alcohol. Hx Substance Use Treatment: Yes ([facility] 08/07/17 to 08/11/17). - Substances Abused. Alcohol. Route: Oral. Frequency: Daily. Amount used: 30 glasses of beer daily (budlight ). Age of first use: 13. Date of Last Use: 03/28/18 Medical History: Medical co-morbidities : atrial fibrillation, hypercholesterolemia,deep vein thrombosis (DVT) with IVC filter in place (right groin),past history of genito-urinary surgery (transurethral resection of the prostate = TURP) + orthosurgery (bilateral hip replacement). Psychiatric History: Patient denies. 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 Additional Comment: Drug Screen is negative. Mental Status Exam - Mental Status Exam Alert and Oriented to: Time, Place, Person Cognitive Function: Good Patient Appearance: Well Groomed Mood: Withdrawn, Hopeful Affect: Appropriate, Normal Range Patient Behavior: Fatigued, Appropriate, Cooperative (friendly on approach) Speech Pattern: Clear, Appropriate Voice Loudness: Normal Thought Process: Intact, Goal Oriented Thought Disorder: Not Present Hallucinations: Denies Suicidal Ideation: Denies Homicidal Ideation: Denies Insight/Judgement: Fair Sleep: Well Appetite: Good Muscle strength/Tone: Normal Gait/Station: Normal Psychiatric Findings - Problem List ([place] 1, 2,3) (1) Alcohol dependence with uncomplicated withdrawal Current Visit: Yes Status: Acute (2) Opioid dependence on agonist therapy Current Visit: Yes Status: Chronic - Initial Treatment Plan Initial Treatment Plan: Psychoeducation.Suport.Detoxification in progress.Observation.
[2018-03-30] MEDS ORDERED: chlordiazePOXIDE 5 MG CAPSULE PO SCH (17:00)
[2018-03-30] MEDS: RIVAROXABAN 20 MG TABLET PO SCH (17:40)
[2018-03-30] MEDS: ATORVASTATIN CA 20 MG TABLET (FP) PO SCH (22:03)
[2018-03-30] MEDS: THIAMINE HCL 100 MG TABLET (FP) PO SCH (22:03)
[2018-03-31 06:19] VITALS: BP 149/96; PULSE 70; TEMP 97.6
[2018-03-31] MEDS ORDERED: chlordiazePOXIDE HCL 10 MG CAPSULE PO SCH ×2 (17:00→23:00)
--- NOTE | 2018-03-31 20:01 | PN ---
BHS Progress Note (SOAP) Subjective: Patient denies current Detox symptoms and reports that he feels well overall. Objective: PATIENT A & O X 3, OBSERVED AMBULATING ON UNIT. NO ACUTE DISTRESS. 03/31/18 19:58 Vital Signs Temperature 97.6 F 03/31/18 06:18 Pulse Rate 70 03/31/18 06:18 Respiratory Rate 18 03/31/18 06:18 Blood Pressure 149/96 03/31/18 06:18 O2 Sat by Pulse Oximetry (%) Laboratory Tests 03/28/18 03/28/18 03/29/18 12:30 20:00 06:00 WBC 6.1 RBC 4.39 Hgb 14.6 Hct 43.5 MCV 99.2 H MCH 33.1 MCHC 33.4 RDW 14.1 Plt Count 212 MPV 8.2 PT with INR 11.70 INR 1.04 D Sodium Potassium Chloride Carbon Dioxide Anion Gap BUN Creatinine Creat Clearance w eGFR POC Glucometer Random Glucose Calcium Total Bilirubin AST ALT Alkaline Phosphatase Total Protein Albumin Urine Color Straw Urine Appearance Clear Urine pH 5.0 D Ur Specific [place] 1.004 Urine Protein Negative Urine Glucose (UA) Negative Urine Ketones Negative Urine Blood 1+ H Urine Nitrite Negative Urine Bilirubin Negative Urine Urobilinogen Negative Ur Leukocyte Esterase Negative Urine WBC (Auto) None Urine RBC (Auto) <1 Urine Bacteria Rare RPR Titer 03/29/18 03/29/18 03/29/18 06:00 06:00 16:19 WBC RBC Hgb Hct MCV MCH MCHC RDW Plt Count MPV PT with INR INR Sodium 144 Potassium 4.6 Chloride 108 H Carbon Dioxide 26 Anion Gap 10 BUN 9 Creatinine 1.0 Creat Clearance w eGFR > 60 POC Glucometer 98 Random Glucose 99 Calcium 9.1 Total Bilirubin 1.1 H D AST 36 ALT 31 Alkaline Phosphatase 69 Total Protein 7.5 Albumin 4.4 Urine Color Urine Appearance Urine pH Ur Specific [place] Urine Protein Urine Glucose (UA) Urine Ketones Urine Blood Urine Nitrite Urine Bilirubin Urine Urobilinogen Ur Leukocyte Esterase Urine WBC (Auto) Urine RBC (Auto) Urine Bacteria RPR Titer Nonreactive LABS NOTED. Assessment: 03/31/18 20:00 COMPLETION OF DETOX REGIMEN. Plan: PATIENT SCHEDULED FOR DISCHARGE FROM DETOX UNIT TODAY.
--- NOTE | 2018-03-31 20:07 | DS ---
[facility] Detox Discharge Summary Admission Date: 03/28/18 Discharge Date: 03/31/18 - History Present History: Alcohol Dependence, Opioid Dependence Additional Comments: PATIENT GOING HOME. PATIENT WILL GO TO THE [facility] OUTPATIENT SUBSTANCE USE TREATMENT PROGRAM ([place] FOR AFTERCARE. PATIENT ADVISED TO FOLLOW-UP WITH BO[employer]ISH[employer] DR. Pepe HARRIS ([facility], [place] FOR MEDICAL ASSESSMENT AND HISTORY OF ATRIAL FIBRILLATION AFTER DISCHARGE FROM DETOX. PATIENT WAS DISCHARGED FROM DETOX UNIT IN STABLE MEDICAL CONDITION. Pertinent Past History: Hypercholesterolemia, History of Atrial fibrillation, Status Post IVC Filter, Suboxone Maintenance Therapy, History of Bilateral Hip Replacement, History of DVT of Lower Extremity, Depression, Anxiety. - Physical Exam Results Vital Signs: Vital Signs Temperature 97.6 F 03/31/18 06:18 Pulse Rate 70 03/31/18 06:18 Respiratory Rate 18 03/31/18 06:18 Blood Pressure 149/96 03/31/18 06:18 O2 Sat by Pulse Oximetry (%) Pertinent Admission Physical Exam Findings: WITHDRAWAL SYMPTOMS. Laboratory Tests 03/28/18 03/28/18 03/29/18 12:30 20:00 06:00 WBC 6.1 RBC 4.39 Hgb 14.6 Hct 43.5 MCV 99.2 H MCH 33.1 MCHC 33.4 RDW 14.1 Plt Count 212 MPV 8.2 PT with INR 11.70 INR 1.04 D Sodium Potassium Chloride Carbon Dioxide Anion Gap BUN Creatinine Creat Clearance w eGFR POC Glucometer Random Glucose Calcium Total Bilirubin AST ALT Alkaline Phosphatase Total Protein Albumin Urine Color Straw Urine Appearance Clear Urine pH 5.0 D Ur Specific [place] 1.004 Urine Protein Negative Urine Glucose (UA) Negative Urine Ketones Negative Urine Blood 1+ H Urine Nitrite Negative Urine Bilirubin Negative Urine Urobilinogen Negative Ur Leukocyte Esterase Negative Urine WBC (Auto) None Urine RBC (Auto) <1 Urine Bacteria Rare RPR Titer 03/29/18 03/29/18 03/29/18 06:00 06:00 16:19 WBC RBC Hgb Hct MCV MCH MCHC RDW Plt Count MPV PT with INR INR Sodium 144 Potassium 4.6 Chloride 108 H Carbon Dioxide 26 Anion Gap 10 BUN 9 Creatinine 1.0 Creat Clearance w eGFR > 60 POC Glucometer 98 Random Glucose 99 Calcium 9.1 Total Bilirubin 1.1 H D AST 36 ALT 31 Alkaline Phosphatase 69 Total Protein 7.5 Albumin 4.4 Urine Color Urine Appearance Urine pH Ur Specific [place] Urine Protein Urine Glucose (UA) Urine Ketones Urine Blood Urine Nitrite Urine Bilirubin Urine Urobilinogen Ur Leukocyte Esterase Urine WBC (Auto) Urine RBC (Auto) Urine Bacteria RPR Titer Nonreactive LABS NOTED. - Treatment Hospital Course: Detox Protocol Followed, Detoxed Safely, Responded well, Discharged Condition Good Patient has Accepted a Rehab Referral to: PT GOING TO THE [facility] OP SUBSTNACE USE TREAMTENT PROGRAM ([place] - Medication Discharge Medications: Ambulatory Orders Atorvastatin Calcium [Lipitor] 20 mg PO HS 03/28/18 Metoprolol Tartrate [Lopressor -] 25 mg PO DAILY 03/28/18 Vit/Iron Fum/Folic AC [ Tablet] 1 each PO DAILY 03/28/18 Rivaroxaban [Xarelto -] 20 mg PO DAILY 03/28/18 Thiamine HCl [B-1] 100 mg PO DAILY 03/28/18 - Diagnosis (1) History of atrial fibrillation Status: Chronic (2) Alcohol dependence with uncomplicated withdrawal Status: Acute (3) Alcohol dependence with intoxication Status: Acute Qualifiers: Complication of substance-induced condition: uncomplicated Qualified Code(s ): F10.220 - Alcohol dependence with intoxication, uncomplicated (4) Encounter for monitoring Suboxone maintenance therapy Status: Acute (5) H/O bilateral hip replacements Status: Chronic (6) S/P IVC filter Status: Chronic (7) Hyperlipidemia Status: Chronic Qualifiers: Hyperlipidemia type: pure hypercholesterolemia Qualified Code(s): E78.00 - Pure hypercholesterolemia, unspecified (8) Anxiety and depression Status: Acute (9) DVT of lower extremity, bilateral Status: Acute Qualifiers: Affected thrombotic vein of extremity: unspecified vein of extremity Chronicity: unspecified Qualified Code(s): I82.403 - Acute embolism and thrombosis of unspecified deep veins of lower extremity, bilateral (10) Opioid dependence on agonist therapy Status: Chronic - AMA Did Patient Leave Against Medical Advice: No
--- NOTE | 2018-04-03 20:42 | EKG ---
Test Reason : Blood Pressure : / mmHG Vent. Rate : 100 BPM Atrial Rate : 227 BPM P-R Int : 000 ms QRS Dur : 098 ms QT Int : 342 ms P-R-T Axes : 000 -22 -02 degrees QTc Int : 441 ms ATRIAL FLUTTER WITH VARIABLE A-V BLOCK ABNORMAL ECG WHEN COMPARED WITH ECG OF 28-MAR-2018 13:37, ATRIAL FLUTTER HAS REPLACED ATRIAL FIBRILLATION Confirmed by AFUA TAVARES, SANDEE ([id number]) on 04/03/2018 8:41:35 PM Referred By: Confirmed By:SANDEE CAAL MD
== END 2018-03-31 08:45 | disposition home or self-care (01) | DRG 897 ==
LOC: YASAS 09:24 → Y3N 12:39
PROVIDERS: ADMIT Internal Medicine; ATTEND Internal Medicine
PROC: HZ2ZZZZ Detoxification Services for Substance Abuse Treatment (ICD-10-PCS; principal; 2018-03-28)
DX: F11.23 Opioid dependence with withdrawal (principal); F10.230 Alcohol dependence with withdrawal, uncomplicated; F32.9 Major depressive disorder, single episode, unspecified; F41.9 Anxiety disorder, unspecified; E78.00 Pure hypercholesterolemia, unspecified; I48.91 Unspecified atrial fibrillation; Z79.01 Long term (current) use of anticoagulants; Z87.898 Personal history of other specified conditions; Z86.718 Personal history of other venous thrombosis and embolism; Z96.643 Presence of artificial hip joint, bilateral
CPT/HCPCS: 36415; 71045-TC-FY; 80053; 81003; 81015; 82550; 82553; 82962; 84484; 85025; 85027; 85610; 86593; 93005; 93010; 99284-25

== ENCOUNTER 2018-03-28 15:57 | Emergency (ER) | payer OTHER ==
--- NOTE | 2018-03-28 16:41 | PDOC ---
History of Present Illness - General Stated Complaint: Revisit, Lab Variance - History of Present Illness Initial Comments: 77 year old female, with a significant past medical history of depression, DVT ( on coumadin), HLD, alcohol abuse, and polysubstance abuse who presents to the ED s/p alcohol intoxication, who presents to the emergency department due to afib on EKG upon presentation to [facility] for detox this AM. Pt last drink of beer was this AM, after which he presented to [facility] for alcohol detox. Pt received screening EKG at [facility] and was noted to have afib on EKG. Pt denies all symptoms. Denies CANO, dizzines, CP, palpitations, vision changes, ab pain, back pain, dysuria, diarrhea, melena, hematochezia. Pt on Xarelto for multiple DVTs, afib. Pt has been seen by poultry hatchery manager in past, however not currently following with a provider. No recent travel or sick contacts. Pt compliant with all home meds. Allergies: NKDA Past surgical history: L hip replacement 2014 Social History: Denies smoking; 20 beers/day for last year, abstinent for 30 years prior; on suboxone for IV drug detox PMD: Dr. Grider 03/28/18 16:39 03/28/18 17:12 Past History - Past Medical History Allergies/Adverse Reactions: Allergies Allergy/AdvReac Type Severity Reaction Status Date / Time No Known Allergies Allergy Verified 03/28/18 11:50 Home Medications: Ambulatory Orders Atorvastatin Calcium [Lipitor] 20 mg PO HS 03/28/18 Buprenorphine/Naloxone [Suboxone 8Mg/2Mg Sl Film -] 1 each SL BID 03/28/18 Chlordiazepoxide [Librium -] 0 mg PO QID 03/28/18 Metoprolol Tartrate [Lopressor -] 25 mg PO DAILY 03/28/18 Vit/Iron Fum/Folic AC [ Tablet] 1 each PO DAILY 03/28/18 Rivaroxaban [Xarelto -] 20 mg PO DAILY 03/28/18 Thiamine HCl [B-1] 100 mg PO DAILY 03/28/18 Anemia: No Asthma: No Cancer: No Cardiac Disorders: Yes (atrial fibrillation) CVA: No COPD: No CHF: No DVT: Yes Dementia: No Diabetes: No GI Disorders: No Disorders: No HTN: No Hypercholesterolemia: Yes Kidney Stones: No Liver Disease: No Seizures: No Thyroid Disease: No - Surgical History Abdominal Surgery: No Appendectomy: No Cardiac Surgery: No Cholecystectomy: No Lung Surgery: No Neurologic Surgery: No Orthopedic Surgery: Yes (left hip replacement 08/2015) - Reproductive History Testicular Surgery: No - Suicide/Smoking/Psychosocial Hx Smoking History: Never smoked Have you smoked in the past 12 months: No Number of Cigarettes Smoked Daily: 0 Cigars Per Day: 0 'Breaking Loose' booklet given: 08/06/17 Hx Alcohol Use: Yes Drug/Substance Use Hx: No Substance Use Type: Alcohol Hx Substance Use Treatment: Yes ([facility] 08/07/17 to 08/11/17) Review of Systems - Review of Systems Comments:: GENERAL/CONSTITUTIONAL: No fever or chills. No weakness. HEAD, EYES, EARS, NOSE AND THROAT: No change in vision. No ear pain or discharge. No sore throat. CARDIOVASCULAR: +BL LE edema. No chest pain or shortness of breath RESPIRATORY: No cough, wheezing, or hemoptysis. GASTROINTESTINAL: No nausea, vomiting, diarrhea or constipation. GENITOURINARY: No dysuria, frequency, or change in urination. MUSCULOSKELETAL: No joint or muscle swelling or pain. No neck or back pain. SKIN: No rash NEUROLOGIC: No headache, vertigo, loss of consciousness, or change in strength/ sensation. ENDOCRINE: No increased thirst. No abnormal weight change HEMATOLOGIC/LYMPHATIC: No anemia, easy bleeding, or history of blood clots. ALLERGIC/IMMUNOLOGIC: No hives or skin allergy. 03/28/18 16:40 *Physical Exam - Physical Exam Comments: GENERAL: Elderly man, Awake, alert, and fully oriented, in no acute distress HEAD: No signs of trauma, normocephalic, atraumatic EYES: PERRLA, EOMI, sclera anicteric, conjunctiva clear ENT: Auricles normal inspection, hearing grossly normal, nares patent, oropharynx clear without exudates. Moist mucosa NECK: Normal ROM, supple, no lymphadenopathy, JVD, or masses LUNGS: No distress, speaks full sentences, clear to auscultation bilaterally HEART: Irr IRR, normal S1 and S2, no murmurs, rubs or gallops, peripheral pulses normal and equal bilaterally. ABDOMEN: globular abdomen, soft, nontender, normoactive bowel sounds. No guarding, no rebound. No masses EXTREMITIES : Normal inspection, Normal range of motion, 2+ nonpitting edema. No clubbing or cyanosis. NEUROLOGICAL: Cranial nerves II through XII grossly intact. Normal speech, normal gait, no focal sensorimotor deficits SKIN: Warm, Dry, normal turgor, no rashes or lesions noted 03/28/18 17:11 ED Treatment Course - LABORATORY CBC & Chemistry Diagram: 03/28/18 18:00 03/28/18 18:00 Medical Decision Making - Medical Decision Making 77 year old female, with a significant past medical history of depression, DVT ( on coumadin), HLD, alcohol abuse, and polysubstance abuse who presents to the ED s/p alcohol intoxication, who presents to the emergency department due to afib on EKG upon presentation to [facility] for detox this AM. EKG on presentation + afib. Pt with no symptoms except for BL edema. Plan: - cbc, cmp, coags, trops - CXR - will likely discharge back to [facility] as pt receiving appropriate tx for afib ; outpt cardiology f/u 03/28/18 17:13 EKG with afib; pt complaining of new shakes, ordered for 50mg of librium PO. CXR pending. 03/28/18 18:18 Labs all normal, trop negative. EKG, CXR unremarkable. Will discharge back to [facility] with outpt f/u with PCP and referral for cardiology. 03/28/18 19:07 *DC/Admit/Observation/Transfer Diagnosis at time of Disposition: Atrial fibrillation Qualifiers: Atrial fibrillation type: chronic Qualified Code(s): I48.2 - Chronic atrial fibrillation - Discharge Dispostion Disposition: TRANSFER ACUTE CARE/OTHER HOSP Condition at time of disposition: Good Decision to Admit order: No - Referrals Referrals: Juana Grider [Primary Care Provider] - 1 week Jordy Arzate MD [Staff Physician] - 1 week - Patient Instructions Additional Instructions: During your visit to the [facility] ED, you were evaluated for atrial fibrillation. You received standard lab tests, EKG and a chest xray, which were all relatively normal. You are being discharged back to [facility] for continuation of your alcohol detox program in addition to outpatient follow-up with your primary care provider. Please continue to take your anticoagulation medication ( xarelto) as previously prescribed. You are being provided a referral for follow-up with Dr. Arzate, our poultry hatchery manager for further evaluation and treatment of your atrial fibrillation. Please call the number provided in this packet to schedule an appointment within one week. If you experience any of the following symptoms, please return to the ED: - Inability to catch your breath - Worsening chest pain, chest tightness, shortness of breath - Pain or numbness in your neck, upper back, jaw or left arm - Changes in vision, numbness/weakness/swelling in any extremities, or persistent dizziness/loss of consciousness - Any new or concerning symptoms - Post Discharge Activity
[2018-03-28 16:54] VITALS: BP 123/67; PULSE 95; TEMP 97.9; BMI 28.5
[2018-03-28 18:17] LABS: BASO % 0.8 % (0-2.0); EOS % 1.1 % (0-4.5); HEMATOCRIT 41.3 % (35.4-49); HEMOGLOBIN 13.7 GM/dL (11.7-16.9); LYMPH % 18.8 % (8-40); MCH 32.6 pg (25.7-33.7); MEAN CELL VOLUME 98.7 fl (80-96); MEAN PLT VOLUME 7.5 fl (7.5-11.1); MONO % 11.2 % (3.8-10.2); NEUT % 68.1 % (42.8-82.8); PLATELET COUNT 219 K/MM3 (134-434); RBC 4.19 M/mm3 (4.00-5.60); RDW 14.4 % (11.9-15.9); WHITE BLOOD COUNT 7.3 K/mm3 (4.0-10.0)
[2018-03-28] MEDS ORDERED: chlordiazePOXIDE HCL 25 MG CAPSULE PO ONE (18:18)
[2018-03-28 18:30] LABS: PROTHROMBIN TIME (PATIENT) 11.3 SEC (9.7-13.0)
[2018-03-28] MEDS ORDERED: chlordiazePOXIDE HCL 25 MG CAPSULE ONE (18:33)
[2018-03-28 18:47] LABS: ALBUMIN 3.9 g/dl (3.4-5.0); ANION GAP 7 (8-16); BLOOD UREA NITROGEN 11 mg/dL (7-18); CALCIUM 8.6 mg/dL (8.5-10.1); CHLORIDE 110 mmol/L (98-107); CO2 26 mmol/L (21-32); GLUCOSE,RANDOM 99 mg/dL (74-106); POTASSIUM 4.3 mmol/L (3.5-5.1); SODIUM 143 mmol/L (136-145)
[2018-03-28 18:53] LABS: ALK PHOS 67 U/L (45-117); BILIRUBIN,TOTAL 0.5 mg/dL (0.2-1.0); SGOT/AST 35 U/L (15-37); SGPT/ALT 30 U/L (12-78); TOT PROT 6.9 g/dl (6.4-8.2)
--- NOTE | 2018-03-28 19:28 | PDOC ---
Attending Attestation - Resident Resident Name: Alphonso Crisostomo - ED Attending Attestation I have performed the following: I have examined & evaluated the patient, The case was reviewed & discussed with the resident, I agree w/resident's findings & plan, Exceptions are as noted - HPI HPI: 03/28/18 19:27 27-year-old male was sent over from [facility] because the condyle. He was in A. fib. There were not aware of his prior history and so sent him to the emergency department. EKG shows a controlled A. fib and the patient does take XARELTO for atrial fibrillation. Since this is not a new finding and the patient has chronic paroxysmal A. fib and is on anticoagulation, discharged back to [facility] - Physicial Exam PE: 03/28/18 19:29 WNWD 77 YO MAL E IN NO ACUTE DISTRESS LUNGS CTA B/L CVS IRR IRR R ABD NONTENDER EXT NO DEFORMITIES NEURO AXOX3 - Medical Decision Making 03/28/18 19:30 PT MAY GO BACK TO [facility]
== END 2018-03-28 22:36 | disposition short-term general hospital (02) ==
LOC: JER 15:57
DX: I48.2 Chronic atrial fibrillation (principal); Z79.01 Long term (current) use of anticoagulants; E78.00 Pure hypercholesterolemia, unspecified; F32.9 Major depressive disorder, single episode, unspecified; Z86.718 Personal history of other venous thrombosis and embolism; F10.10 Alcohol abuse, uncomplicated; F11.20 Opioid dependence, uncomplicated; Z96.641 Presence of right artificial hip joint
CPT/HCPCS: 36415; 71045-TC-FY; 80053; 82550; 82553; 84484; 85025; 85610; 99284-25

== ENCOUNTER → 2018-04-20 | Emergency (ER) | payer OTHER ==
--- NOTE | 2018-04-20 16:36 | PDOC ---
History of Present Illness <Tammy Grubbs - Last Filed: 04/20/18 17:23> - General History Source: Patient Exam Limitations: Intoxication - History of Present Illness Initial Comments: 04/20/18 17:24 The patient is a 77 year old male, with a significant past medical history of ETOH abuse, DVT, and hyperlipidemia, who presents to the emergency department [facility] for evaluation of intoxication. Patient reports he comes into the ED for ETOH detox, and states his last drinks were several beers earlier today. Patient reports he has increased his ETOH intake over the past year after his . He denies any history of ETOH withdrawal seizures and states he has been to detox multiple times in the past. He denies any current abdominal pain, nausea, vomiting, diarrhea, or constipation. He denies any fever , chills, cough, headache, dizziness, or tremors. He denies any chest pain, shortness of breath, diaphoresis, or palpitations. He denies any dysuria, hematuria, frequency or urgency. Allergies: NKDA Past Surgical History: Left hip replacement Social History: ETOH abuse. Non smoker. No recreational drug use. <Pietro Armstrong - Last Filed: 04/20/18 17:25> - General Chief Complaint: Alcohol intoxication Stated Complaint: Alcohol intoxication Time Seen by Provider: 04/20/18 16:36 Past History - Past Medical History Anemia: No Asthma: No Cancer: No Cardiac Disorders: Yes (atrial fibrillation) CVA: No COPD: No CHF: No DVT: Yes Dementia: No Diabetes: No GI Disorders: No Disorders: No HTN: No Hypercholesterolemia: Yes Kidney Stones: No Liver Disease: No Seizures: No Thyroid Disease: No - Surgical History Abdominal Surgery: No Appendectomy: No Cardiac Surgery: No Cholecystectomy: No Lung Surgery: No Neurologic Surgery: No Orthopedic Surgery: Yes (left hip replacement 08/2015) - Reproductive History Testicular Surgery: No - Suicide/Smoking/Psychosocial Hx Smoking History: Never smoked Have you smoked in the past 12 months: No Number of Cigarettes Smoked Daily: 0 Cigars Per Day: 0 'Breaking Loose' booklet given: 08/06/17 Hx Alcohol Use: Yes Drug/Substance Use Hx: No Substance Use Type: Alcohol Hx Substance Use Treatment: [facility] 08/[facility]) <Tammy Grubbs - Last Filed: 04/20/18 17:23> <Pietro Armstrong - Last Filed: 04/20/18 17:25> - Past Medical History Allergies/Adverse Reactions: Allergies Allergy/AdvReac Type Severity Reaction Status Date / Time No Known Allergies Allergy Verified 03/28/18 11:50 Home Medications: Ambulatory Orders Atorvastatin Calcium [Lipitor] 20 mg PO HS 03/28/18 Metoprolol Tartrate [Lopressor -] 25 mg PO DAILY 03/28/18 Vit/Iron Fum/Folic AC [ Tablet] 1 each PO DAILY 03/28/18 Rivaroxaban [Xarelto -] 20 mg PO DAILY 03/28/18 Thiamine HCl [B-1] 100 mg PO DAILY 03/28/18 Review of Systems - Review of Systems Able to Perform ROS?: Yes Comments:: 04/20/18 17:24 GENERAL/CONSTITUTIONAL: +Intoxication. No fever or chills. No weakness. HEAD, EYES, EARS, NOSE AND THROAT: No change in vision. No ear pain or discharge. No sore throat. GASTROINTESTINAL: No nausea, vomiting, diarrhea or constipation. GENITOURINARY: No dysuria, frequency, or change in urination. CARDIOVASCULAR: No chest pain or shortness of breath. RESPIRATORY: No cough, wheezing, or hemoptysis. MUSCULOSKELETAL: No joint or muscle swelling or pain. No neck or back pain. SKIN: No rash NEUROLOGIC: No headache, vertigo, loss of consciousness, or change in strength/ sensation. ENDOCRINE: No increased thirst. No abnormal weight change. HEMATOLOGIC/LYMPHATIC: No anemia, easy bleeding, or history of blood clots. ALLERGIC/IMMUNOLOGIC: No hives or skin allergy. <Pietro Armstrong - Last Filed: 04/20/18 17:25> *Physical Exam - Physical Exam Comments: 04/20/18 17:24 Constitutional: Poor dentition. Awake, alert, oriented. No acute distress. Head: Normocephalic. Atraumatic Eyes: PERRL. EOMI. Conjunctivae are not pale. ENT: Mucous membranes are moist and intact. Posterior pharynx without exudates or erythema. Uvula midline. Neck: Supple. Full ROM. No lymphadenopathy. Cardiovascular: Regular rate. Regular rhythm. S1, S2 regular. Distal pulses are 2+ and symmetric. Pulmonary/Chest: No evidence of respiratory distress. Clear to auscultation bilaterally No wheezing, rales or rhonchi. Abdominal: Soft and non-distended. There is no tenderness. No rebound, guarding or rigidity. No organomegaly. No palpable masses. Good bowel sounds. Back: No CVA tenderness. Musculoskeletal: No edema. No cyanosis. No clubbing. Full range of motion in all extremities. No calf tenderness. Radial/pedal pulses are intact and 2+ bilaterally Skin: Skin is warm and dry. No petechiae. No purpura. Neurological: Alert and oriented to person, place, and time. Cranial nerves II -XII are grossly intact. Normal speech. Strength is grossly symmetric. No sensory deficits. Psychiatric: Good eye contact. Normal interaction, affect and behavior. <Pietro Armstrong - Last Filed: 04/20/18 17:25> Heart Score/ECG Review - ECG Intrepretation Comment:: 04/20/18 16:58 sinus at 71 with baseline artifact, nl axis, nl interval, q waves septally that are age indeterminate <Tammy Grubbs - Last Filed: 04/20/18 17:23> Medical Decision Making - Medical Decision Making 04/20/18 17:07 a/p: 77yo male brought in by his friends requesting detox for etoh use -last drink earlier today -denies drug use, on suboxone -denies all somatic complaints -eating a turkey sandwich -will call [facility] to discuss poss detox -no SI/HI -states he wants detox and rehab for etoh use. 04/20/18 17:13 pt speaking in full sentences ambulatory with a steady gait pt refusing to stay for further eval refusing to go detox pt attemtped to walk out of the ED brought from detox for medical clearance pt does not appear intoxicated no slurred speech iv removed pt eloped from the ED 04/20/18 17:23 pt states he needs to go home to his fam and will be back tomorrow to go to detox <Tammy Grubbs - Last Filed: 04/20/18 17:23> *DC/Admit/Observation/Transfer - Attestations Physician Attestion: 04/20/18 17:16 I, Dr. Tammy Grubbs, DO, attest that this document has been prepared under my direction and personally reviewed by me in its entirety. I further attest, that it accurately reflects all work, treatment, procedures and medical decision -making performed by me. <Tammy Grubbs - Last Filed: 04/20/18 17:23> - Attestations Scribe Attestion: 04/20/18 17:25 Documentation prepared by Pietro Armstrong, acting as medical director of hospice for Tammy Grubbs DO. <Pietro Armstrong - Last Filed: 04/20/18 17:25> Diagnosis at time of Disposition: Alcohol intoxication - Discharge Dispostion Disposition: ELOPED Condition at time of disposition: Unchanged/Unknown - Referrals Referrals: Juana Grider [Primary Care Provider] - - Patient Instructions - Post Discharge Activity
[2018-04-20 17:34] VITALS: BP 133/79; PULSE 84; TEMP 97.7; BMI 31.1
--- NOTE | 2018-04-21 15:36 | EKG ---
Test Reason : Blood Pressure : / mmHG Vent. Rate : 073 BPM Atrial Rate : 220 BPM P-R Int : 000 ms QRS Dur : 102 ms QT Int : 386 ms P-R-T Axes : 000 -20 -03 degrees QTc Int : 425 ms ATRIAL FIBRILLATION ABNORMAL ECG Confirmed by SOLO GIORDANO MD ([id number]) on 04/21/2018 3:36:16 PM Referred By: Confirmed By:SOLO GIORDANO MD
== END | disposition left against medical advice (07) ==
LOC: JER 16:28
DX: F10.120 Alcohol abuse with intoxication, uncomplicated (principal)
CPT/HCPCS: 93005; 93010; 99281-25